=== PATIENT | female | born 1965 | race Caucasian/White ===

== ENCOUNTER 2023-02-15 09:45 | Observation (INO) ==
--- NOTE | 2023-01-27 11:19 | PAT Medication Instructions ---
Medication Instructions Date of Service January 27, 2023 Home Medications albuterol sulfate 2.5 mg/3 mL (0.083 %) solution for nebulization 2.5 mg inhalation .COMPLEX PRN Shortness Of Breath albuterol sulfate 90 mcg/actuation aerosol inhaler (ProAir HFA) 2 puffs inhalation Q4H PRN Shortness Of Breath furosemide 40 mg tablet 40 mg PO DAILY PRN Edema meloxicam 15 mg tablet 15 mg PO QAM biotin 1 mg tablet 1 mg PO QAM calcium carbonate 600 mg-vitamin D3 5 mcg (200 unit) tablet 2 tab PO BID cyanocobalamin (vitamin B-12) 1,000 mcg/mL injection solution 1,000 mcg IM MONTHLY fluticasone propionate 50 mcg/actuation nasal spray,suspension (Flonase Allergy Relief) 1 sprays intranasal DAILY PRN Allergy Symptoms loratadine 10 mg tablet (Claritin) 10 mg PO QAM eqbbabpd-izej-bxz-folic acid 18 mg-0.4 mg tablet (One Daily For Women) 1 tab PO QAM tramadol 50 mg tablet 100 mg PO Q6H PRN Pain trazodone 50 mg tablet 50 mg PO HS Continue as directed cyanocobalamin (vitamin B-12) 1,000 mcg/mL injection solution 1,000 mcg IM MONTHLY ASK your surgeon for instructions meloxicam 15 mg tablet 15 mg PO QAM STOP taking 2 weeks before surgery biotin 1 mg tablet 1 mg PO QAM DO NOT take the morning of surgery furosemide 40 mg tablet 40 mg PO DAILY PRN Edema calcium carbonate 600 mg-vitamin D3 5 mcg (200 unit) tablet 2 tab PO BID loratadine 10 mg tablet (Claritin) 10 mg PO QAM ceskihep-fard-ibo-folic acid 18 mg-0.4 mg tablet (One Daily For Women) 1 tab PO QAM Take morning of surgery With a small sip of water, OTHERWISE NOTHING TO EAT OR DRINK AFTER MIDNIGHT: albuterol sulfate 2.5 mg/3 mL (0.083 %) solution for nebulization 2.5 mg inhalation .COMPLEX PRN Shortness Of Breath (if needed) albuterol sulfate 90 mcg/actuation aerosol inhaler (ProAir HFA) 2 puffs inhal ation Q4H PRN Shortness Of Breath (use if needed; please bring with you to hospital day of surgery if possible) fluticasone propionate 50 mcg/actuation nasal spray,suspension (Flonase Allergy Relief) 1 sprays intranasal DAILY PRN Allergy Symptoms (if needed) tramadol 50 mg tablet 100 mg PO Q6H PRN Pain (if needed) Take evening before surgery albuterol sulfate 2.5 mg/3 mL (0.083 %) solution for nebulization 2.5 mg inhalation .COMPLEX PRN Shortness Of Breath (if needed) albuterol sulfate 90 mcg/actuation aerosol inhaler (ProAir HFA) 2 puffs inhalation Q4H PRN Shortness Of Breath (if needed) furosemide 40 mg tablet 40 mg PO DAILY PRN Edema (if needed) calcium carbonate 600 mg-vitamin D3 5 mcg (200 unit) tablet 2 tab PO BID fluticasone propionate 50 mcg/actuation nasal spray,suspension (Flonase Allergy Relief) 1 sprays intranasal DAILY PRN Allergy Symptoms (if needed) tramadol 50 mg tablet 100 mg PO Q6H PRN Pain (if needed) trazodone 50 mg tablet 50 mg PO HS Other Notes If you have any questions please call us at [phone] or [phone] or [phone] or [phone]
--- NOTE | 2023-02-02 15:26 | Anesthesiology Consultation ---
Date of Service February 02, 2023 Assessment & Plan (1) Encounter for pre-operative examination: - Infectious disease screening: Per assessment on 02/02/23: No known infectious disease contacts or current infectious disease symptoms. No noted Covid positive test result in past 90 days. - PCP visit (02/04/23): "Requesting preop testing. Patient is to see Cardiology next week - she can be cleared from our standpoint so long as her preop testing is within normal limits and Cardiology clears her." > Preop testing unremarkable and patient okay to proceed from cardiology perspective* - Patient scheduled to see [facility] cardiology in near future (new patient, PCP recommended visit for evaluation of previous chest pain). Cardiology visit (02/10/23): "Annabella Freeman is a 57 year old year old female Who in November 2022 developed chest pain in the middle of her chest. She described it as a squeezing sensation. There was no radiation of her discomfort, shortness of breath, or nausea. Her symptoms lasted for 4 days and was unrelenting. From what I understand she was to get a stress test but for reasons hard to explain the insurance company denied this. She had a resting echo which was essentially normal. Fortunately she is had no further chest discomfort. She is scheduled for total knee arthroplasty... Chest discomfort: Her chest discomfort was continuous for 3-4 days and unrelenting. She had a normal echo. I do not think her chest discomfort was cardiac in nature. Fortunately she is had no further symptoms.. Preoperative evaluation: She can achieve 4 metabolic equivalents of exercise. Her left ventricular systolic function is normal and she has no significant valvular abnormalities. I think she can proceed with orthopedic surgery without further cardiac evaluation." - addendum 02/10/23 Maritza Stinson PA-C: Outpatient joint assessment: Patient is currently scheduled for inpatient pathway. If re-evaluated and patient/surgeon requests outpatient pathway, patient is not acceptable candidate for outpatient joint program from anesthesia standpoint. Chart Review Chart Review: Acceptable Risk for Surgery and Patient seen in Pre Admission Testing Teaching & Discussion Pre-Anesthesia Teaching/Discussion Notes: Instructed NPO after midnight before surgery,except medications with 15 cc of water. Medication instructions provided according to the PAT guidelines. History Surgery Operation Date: 02/15/23 08:00 Proposed Procedures p Left Total Knee Arthropalsty Possible Stems and Wedges - Isra Villa, DO Height/Weight Height: 5 ft 1 in Weight: 123.8 kg Allergies Allergy/AdvReac Type Severity Reaction Status Date / Time sulfamethoxazole Allergy Severe Skin Verified 02/01/23 14:50 [From peeling Sulfamethoxazole-Trimethoprim] trimethoprim Allergy Severe Skin Verified 02/01/23 14:50 [From peeling Sulfamethoxazole-Trimethoprim] ciprofloxacin [Cipro] Allergy Intermediate Rash Verified 02/01/23 14:50 prednisone Allergy Intermediate Rash Verified 02/01/23 14:50 Penicillins AdvReac Mild "Does not Verified 02/01/23 14:50 work" per patient doxycycline Allergy Intermediate Rash Uncoded 02/01/23 14:50 montelukast AdvReac Severe Neurologic Uncoded 02/01/23 14:50 complications Medications Home Medications Medication Instructions Recorded Confirmed Last Taken albuterol sulfate 2.5 mg/3 mL 2.5 mg inhalation .COMPLEX PRN 04/16/19 01/26/23 Unknown (0.083 %) solution for nebulization Shortness Of Breath albuterol sulfate 90 mcg/actuation 2 puffs inhalation Q4H PRN 04/16/19 01/26/23 Unknown aerosol inhaler (ProAir HFA) Shortness Of Breath furosemide 40 mg tablet 40 mg PO DAILY PRN Edema 04/16/19 01/26/23 Unknown meloxicam 15 mg tablet 15 mg PO QAM 04/16/19 01/26/23 Unknown biotin 1 mg tablet 1 mg PO QAM 01/26/23 01/26/23 Unknown calcium carbonate 600 mg-vitamin 2 tab PO BID 01/26/23 01/26/23 Unknown D3 5 mcg (200 unit) tablet cyanocobalamin (vitamin B-12) 1,000 mcg IM MONTHLY 01/26/23 01/26/23 Unknown 1,000 mcg/mL injection solution fluticasone propionate 50 1 sprays intranasal DAILY PRN 01/26/23 01/26/23 Unknown mcg/actuation nasal Allergy Symptoms spray,suspension (Flonase Allergy Relief) loratadine 10 mg tablet (Claritin) 10 mg PO QAM 01/26/23 01/26/23 Unknown rjtjvoci-kttu-wyu-folic acid 18 1 tab PO QAM 01/26/23 01/26/23 Unknown mg-0.4 mg tablet (One Daily For Women) tramadol 50 mg tablet 100 mg PO Q6H PRN Pain 01/26/23 01/26/23 Unknown trazodone 50 mg tablet 50 mg PO HS 01/26/23 01/26/23 Unknown Past Medical History Medical History Anemia Asthma Atypical chest pain PCP had recommended stress test for evaluation of atypical chest pain- due to difficulty with insurance coverage of stress testing, resting Echo was done 01/2023 and patient was advised to have cardiology assessment ([facility] cardio appt scheduled 02/09) Fatty liver History of COVID-19 06/2020- mild symptoms, resolved History of Veda thyroiditis Morbid obesity with BMI of 50.0-59.9, adult Sleep apnea Hx prior to gastric bypass, no device currently (no formal retesting) Exercise / Class Metabolic Activity III < 4 Walking/Shop/Light housework Past Family History Family History Mother Family history of reaction to anesthesia vomiting Past Surgical History Surgical History History of colonoscopy History of esophagogastroduodenoscopy (EGD) History of placement of ear tubes x3 History of removal of cyst Breast (benign) History of Slade-en-Y gastric bypass 2006 History of tonsillectomy and adenoidectomy History of wisdom tooth extraction Past Anesthesia History No Hx of Anesthesia Complications Mother- PONV History of PONV No Hx of PONV and No Hx of Motion Sickness Social History Smoking Status: Never smoker Do You Dip or Chew Tobacco: No Hx Alcohol Use: Yes Alcohol type: beer alcohol intake frequency: holidays/special occasions only Hx Substance Use: No substance use type: does not use Review of Systems Patient denies chest pain, shortness of breath, fever, chills, cough, wheezing, palpitations. Physical Exam Vital Signs VITALS BP 132/83 P 68 TEMP 98.0 SP02 95%RA RESP 16 PHYSICAL Full cervical extension range of motion. Full TMJ range of motion. TMD 4 finger breaths Mallampati Score 1 Dentition: right lower molar missing cap Lungs: clear throughout to auscultation Cardiac: regular rate and rhythm, no murmurs noted Spine: normal Carotid arteries: negative bruit Extremities: no LE edema Short neck Lab Results Anesthesia Preop Results Results Anesthesia Widget: WBC 6.49 K/ul (4.8-10.8) 02/02/23 Hgb 12.9 g/dl (12.0-16.0) 02/02/23 Hct 39.8 % (37.0-47.0) 02/02/23 Plt 340 K/uL (130-400) 02/02/23 Na 141 mmol/L (136-145) 02/02/23 K 4.5 mmol/L (3.5-5.1) 02/02/23 Cl 107 mmol/L (98-107) 02/02/23 CO2 29 mmol/L (21-32) 02/02/23 BUN 18 mg/dl (6-23) 02/02/23 Creat 0.62 mg/dl (0.6-1.2) 02/02/23 Glucose Level 97 mg/dl (70-99(Fasting)) 02/02/23 PT 10.9 Seconds (9.0-12.0) 02/02/23 PTT 25.0 Seconds (21.0-31.0) 02/02/23 INR 1.0 (0.9-1.1) 02/02/23 HA1c 6.0 % (4.5-5.6) H 02/02/23 Urine Color Yellow 02/02/23 Urine Appearance Clear (Clear) 02/02/23 Urine pH 5.5 (4.5-7.5) 02/02/23 Urine Specific [place] 1.026 (1.000-1.030) 02/02/23 Urine Protein Negative (Negative) 02/02/23 Urine Glucose (UA) Negative (Negative) 02/02/23 Urine Ketones Negative (Negative) 02/02/23 Urine Blood Negative (Negative) 02/02/23 Urine Nitrite Negative (Negative) 02/02/23 Urine Bilirubin Negative (Negative) 02/02/23 Urine Urobilinogen Negative (Negative) 02/02/23 Urine Leukocyte Esterase Trace (Negative) H 02/02/23 Urine WBC (Auto) 1-5 /hpf (0-5) 02/02/23 Urine RBC (Auto) 0-4 /hpf (0-4) 02/02/23 Urine Hyaline Casts (Auto) 0 /lpf (0-5) 02/02/23 Urine Epithelial Cells (Auto) 10-20 /lpf (0-5) H 02/02/23 Urine Bacteria (Auto) Negative (Negative) 02/02/23 Blood Type O Positive 02/02/23 Antibody Screen NEGATIVE 02/02/23 Testing Electrocardiogram Date: 11/24/22 NSR at 64bpm. Cannot r/o anterior infarct, age undetermined. No significant change compared to 11/03/2020 per [facility] sewer comparison. Echo 01/17/23* Chest X-Ray Date: 02/02/23 FINDINGS: Lung volumes are normal. Lungs are clear. There is no pneumothorax or pleural effusion. Cardiac size is normal. Mediastinal contours are normal. There is no evidence for pulmonary edema. IMPRESSION: No acute cardiopulmonary findings. Echocardiogram Date: 01/17/23 EF 55 to 60%. Wall motion is normal. No regional wall motion abnormality. Mild MR/TR. Trivial pericardial effusion is identified circumferential to the heart. No evidence of hemodynamic compromise.
--- NOTE | 2023-02-03 09:02 | History & Physical Report ---
Date of Service February 03, 2023 date of surgery: 02/15/23 Procedure: Left Total Knee Arthropalsty with Possible Stems and Wedges Surgeon: Isra Villa Assessment & Plan (1) Arthritis of knee, left: Plan: Further care discussed with patient and at this point in time has failed conservative measures and would like to proceed with a left total knee replacement. Plan on discharge will be home with home health physical therapy. DVT prophylaxiswith TEDs, SCDs and will also place on aspirin 81 mg p.o. b.i.d. for a month postop. Patient will have follow up appointment in our office two weeks post op for staple/suture removal and re-evaluation. Patient otherwise has no other questions or concerns. The risks and benefits have been discussed including, but not limited to, risk of infection, nerve injury, stiffness, loss of motion, failure to improve, etc. Reasonable outcomes and options of treatment were discussed. An explanation of appropriate alternatives to the procedure that may be advantageous were discussed and their risks and benefits, as well as the risks and benefits of not proceeding with treatment. I offered to answer any additional inquiries concerning the treatment involved. All the patient's questions were answered. The patient is agreeable, understanding of the treatment plan and alternatives, and wishes to proceed with the treatment plan. History of Present Illness Chief Complaint: left knee pain Primary Care Provider: Singh Guevara MD Annabella is a pleasant 57-year-old female who presented for preop evaluation prior to upcoming left total knee arthroplasty. Shes had pain in the knees for many years now, which is gradually worsened and is now affecting her daily activities, including walking, standing and using stairs. She states that she has tried previous injections as well as oral medications, including Tylenol ibuprofen as well as physical therapy. At This point time has failed conservative measures, and which is a proceed with a left on the replacement. Allergies Allergy/AdvReac Type Severity Reaction Status Date / Time sulfamethoxazole Allergy Severe Skin Verified 02/01/23 14:50 [From peeling Sulfamethoxazole-Trimethoprim] trimethoprim Allergy Severe Skin Verified 02/01/23 14:50 [From peeling Sulfamethoxazole-Trimethoprim] ciprofloxacin [Cipro] Allergy Intermediate Rash Verified 02/01/23 14:50 prednisone Allergy Intermediate Rash Verified 02/01/23 14:50 Penicillins AdvReac Mild "Does not Verified 02/01/23 14:50 work" per patient doxycycline Allergy Intermediate Rash Uncoded 02/01/23 14:50 montelukast AdvReac Severe Neurologic Uncoded 02/01/23 14:50 complications Home Medications Medication Instructions Recorded Confirmed Type albuterol sulfate 2.5 mg/3 mL 2.5 mg inhalation .COMPLEX PRN 04/16/19 01/26/23 History (0.083 %) solution for nebulization Shortness Of Breath albuterol sulfate 90 mcg/actuation 2 puffs inhalation Q4H PRN 04/16/19 01/26/23 History aerosol inhaler (ProAir HFA) Shortness Of Breath furosemide 40 mg tablet 40 mg PO DAILY PRN Edema 04/16/19 01/26/23 History meloxicam 15 mg tablet 15 mg PO QAM 04/16/19 01/26/23 History biotin 1 mg tablet 1 mg PO QAM 01/26/23 01/26/23 History calcium carbonate 600 mg-vitamin 2 tab PO BID 01/26/23 01/26/23 History D3 5 mcg (200 unit) tablet cyanocobalamin (vitamin B-12) 1,000 mcg IM MONTHLY 01/26/23 01/26/23 History 1,000 mcg/mL injection solution fluticasone propionate 50 1 sprays intranasal DAILY PRN 01/26/23 01/26/23 History mcg/actuation nasal Allergy Symptoms spray,suspension (Flonase Allergy Relief) loratadine 10 mg tablet (Claritin) 10 mg PO QAM 01/26/23 01/26/23 History ajdgkwsp-yggx-ylk-folic acid 18 1 tab PO QAM 01/26/23 01/26/23 History mg-0.4 mg tablet (One Daily For Women) tramadol 50 mg tablet 100 mg PO Q6H PRN Pain 01/26/23 01/26/23 History trazodone 50 mg tablet 50 mg PO HS 01/26/23 01/26/23 History Past Med/Surg History Medical History Anemia Asthma Atypical chest pain PCP had recommended stress test for evaluation of atypical chest pain- due to difficulty with insurance coverage of stress testing, resting Echo was done 01/2023 and patient was advised to have cardiology assessment ([facility] cardio appt scheduled 10/4) Fatty liver History of COVID-19 06/2020- mild symptoms, resolved History of Veda thyroiditis Morbid obesity with BMI of 50.0-59.9, adult Sleep apnea Hx prior to gastric bypass, no device currently (no formal retesting) Surgical History History of colonoscopy History of esophagogastroduodenoscopy (EGD) History of placement of ear tubes x3 History of removal of cyst Breast (benign) History of Slade-en-Y gastric bypass 2006 History of tonsillectomy and adenoidectomy History of wisdom tooth extraction Family History Mother Family history of reaction to anesthesia vomiting Social History Smoking Status: Never smoker Second Hand Exposure: No; Do You Dip or Chew Tobacco: No; Hx Alcohol Use: Yes Alcohol type: beer Hx Substance Use: No Preferred Language: Czech Communication Ability: Effective 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 Beliefs That Will Affect Care: None Current Living Situation: Parent and Family Current Living Situation Comment: Lives with mom and foster daughter Feels Safe at Home: Yes Assistive Devices: Glasses and Nebulizer Review of Systems Review of Systems: All systems reviewed & are unremarkable except as noted in HPI & below Constitutional: no fever, no chills and no sweats Respiratory: no cough and no dyspnea Cardiovascular: no chest pain, no dyspnea and no orthopnea Gastrointestinal: no abdominal pain, no nausea and no vomiting Musculoskeletal: as per Subjective / HPI Physical Exam Physical Exam: HT 5ft 1in wt: 123.8kg Constitutional: WD/WN, vitals as above no acute distress Respiratory: normal respiratory effort, lungs clear to auscultation no respiratory distress, no labored breathing and does not use accessory muscles Cardiovascular: RRR, no murmur, no edema Gastrointestinal (Abdomen): normal bowel sounds, soft, nontender, no hepatosplenomegaly Musculoskeletal: Knee: + knee abnormal to inspection (left knee), + effusion (+1 effusion), + limited ROM of knee (ROM 0/3/110), + knee ROM with crepitation, + joint line tenderness (medial joint line) and + Bharathi's sign positive; no deformity, no skin erythema, no ecchymosis, no valgus laxity, no varus laxity, anterior drawer test negative, Paula's sign negative and pivot shift test negative Results & Data Results & Data Diagnostic Findings Advanced DJD of the left knee, bone on bone changes, narrowing medial compartment and PF joint with osteophyte formation and subchondral sclerosis.
[~2023-02-15 09:45] MED LIST: ACETAMINOPHEN 500 MG TAB PO SCH; BUPIVACAINE 0.5 % 5 MG/1 ML PF 10ML VIAL ONE; CeleBREX 200 MG CAP PO SCH; FAMOTIDINE 20 MG TAB PO SCH; GABAPENTIN 300 MG CAP PO SCH; LR 500ML BOLUS, THEN 15ML/HR IV SCH; LR 60ML/HR IV SCH; METOCLOPRAMIDE HCL 10 MG TABLET PO SCH; ROPIVACAINE 0.5% 5 MG/ML 30 ML VIAL ONE; ROPIVACAINE 0.5% HCL/PF 150 MG, BUPIVACAINE 0.75% MPF 20 ML, EPINEPHrine 30MG/30ML (OR ... INSTIL SCH; TRANEXAMIC ACID 1,000 MG **IV Intra-op IV SCH; TRANEXAMIC ACID 1,000 MG **IV Pre-op IV SCH
--- NOTE | 2023-02-15 10:12 | History & Physical Bridge Note ---
Date of Service February 15, 2023 History & Physical Bridge Note I have examined the patient, reviewed the History & Physical and in the interval since the performance of the History & Physical I have noted the following changes of clinical significance: no changes noted
[2023-02-15] MEDS ORDERED: ATROPINE SULFATE 0.1 MG/ML 10ML SYR IV PRN (11:25)
[2023-02-15] MEDS ORDERED: fentaNYL citrate PF 100 MCG/2 ML VIAL IV PRN (11:25)
[2023-02-15] MEDS ORDERED: ONDANSETRON INJ 2 MG/ML 2 ML VIAL IV PRN ×2 (11:25→16:52)
[2023-02-15] MEDS ORDERED: ePHEDrine sulfate 50 MG/ML AMP IV PRN (11:25)
[2023-02-15] MEDS ORDERED: ORTHO JOINT ANESTHETIC ONE (11:53)
[2023-02-15] MEDS ORDERED: fentaNYL citrate PF 100 MCG/2 ML VIAL ONE (11:54)
[2023-02-15] MEDS ORDERED: PROPOFOL IV EMULSION 10 MG/ML 20 ML VIAL IV ONE ×2 (11:54→13:51)
[2023-02-15] MEDS ORDERED: MIDAZOLAM HCL 1 MG/ML 2ML VIAL ONE (11:54)
[2023-02-15] MEDS ORDERED: KETAMINE 50 MG/5 ML SYRINGE ONE (11:54)
[2023-02-15] MEDS ORDERED: LIDOCAINE 2% 2 ML VIAL/AMP(20MG/ML) INFIL ONE (11:54)
[2023-02-15] MEDS ORDERED: PHENYLEPHRINE 100MCG/ML 5ML SYR ONE (13:39)
--- NOTE | 2023-02-15 13:56 | Operative Report ---
Post Operative Report Pre & Post Diagnosis Operation Date: 02/15/23 11:10 Pre-Op Diagnosis: Osteoarthritis Knee Left Post-Op Diagnosis: Osteoarthritis Knee LeftMorbid obesity 51.7 BMI 124 kg I identified the patient and participated in the time-out.: Yes Procedure Operation Date: 02/15/23 11:10 Actual Procedures p Left Total Knee Arthropalsty Utilizing patient-matched total knee arthroplasty size journey 2 Ferreira & Nephew journey 2 size femur 5 tibia 3 poly 10 patella 29 ovalLeft) - Isra Villa DO Surgeon Isra Villa DO Preschool Teacher Alex DOUGLAS Estimated Blood Loss 10 Findings Consistent with Post-Op Diagnosis Patient presents with severe end-stage tricompartmental DJD left knee eburnated [id number] marginal osteophytes varus alignment subchondral sclerosis large effusion Specimens Bone and cartilage Drains Medium bore Hemovac Anesthesia Type MAC Spinal Regional Complications none Disposition Accompanied Patient To Recovery: No Indications Patient presents with severe end-stage DJD left knee failed attempted conservative management occluding physical therapy anti-inflammatories relative rest activity modification patient presents with eburnated [id number] failing to corticosteroid injections as well as viscosupplementation Description of Procedure After proper prepping and draping of the left lower extremity anterior midline incision was made over the region of the extensor extensor mechanism after meticulous hemostasis was obtained and maintained in subcutaneous tissues a medial parapatellar incision was made The patella was subluxed lateralward the medial lateral gutter were cleaned from any hypertrophic synovitis and scar tissue of the distal femoral block was placed and the distal femoral osteotomy cut was made subsequently the chamfers anterior and posterior osteotomy cuts were made utilizing the 4-in-1 block the tibia was subsequently subluxed anteriorward medial and ateral meniscal remnants were excised in their entirety remnants of the anterior and posterior cruciate ligaments were excised in their entirety excellent exposure of the proximal tibia was obtained the tibial osteotomy guide was placed on the proximal tibial osteotomy cut was made once again the knee was irrigated with copious amounts of sterile saline solution the patella was subsequently everted lateralward thickened scar tissue around the patella was removed the patella was subsequently cut utilizing a freehand technique and was drilled prepared for final preparation and placement of patella socially flexion-extension gaps were checked and the equal and symmetric trials were placed to the appropriate femoral and tibial trials with poly-spacer being placed for equal flexion and extension gaps and full range of motion including extension to 0 and flexion to 140 the trial components after having been taken to recovery range of motion was subsequently removed meticulous hemostasis was obtained and maintained subsequently a knee block injection of joint cocktail including ropivacaine 0.5% 150 mg. Bupivacaine 0.5% epinephrine 1-200,030 mL's toradol 30 mg dexamethasone 4 mg ketamine 10 mg clonidine 100 micrograms normal saline solution 30 mg was infiltrated into the soft tissues of the posterior knee medial lateral gutters and periosteal synovium special attention was paid to protect neurovascular structures at all times subsequently trial components having been removed the knee was irrigated with sterile saline solution. debris was removed the proximal tibia was subsequently prepared and was made ready for the placement of the tibial component tibial component was also cemented and tamped into position the femoral component was subsequently placed and cemented in the position the patellar component was subsequently cemented in position because hemostasis once again obtained and maintained wound having been thoroughly irrigated with debridement and debridement lavage was performed as well as a medial parapatellar incision closed with #1 Vicryl in interrupted fashion subcutaneous was closed with #2 Vicryl skin was closed with skin clips. PA-C was necessary for prepping and drapping as well as wound closure of deep fascia Sub cutaneous tissue and skin and was necessary for the case. A sterile compressive dressing was placed patient was taken to recovery in stable condition of report dictated by Allen I attest to the content of the Intraoperative Record and any orders documented therein. Any exceptions are noted below.Due to the complex nature of the procedure, the entire surgery was performed with the operational assistance ofAlex Wangangeline Antonio patient is 124 kg with a BMI of51.7 The patient's habitus did contribute to significant technical difficulty requiring extra time. Additional help was necessary in order to position the patient safely. The use of specialized (longer, deeper) retractors and/or instruments were needed. Due to this, the procedure took 20 minutes longer than the standard total knee arthroplasty.". The trust administrative assistant, under direct supervision, was involved in the actual performance of all aspects of the surgical procedure including hemostasis, tissue retraction and incision, instrument management, patient positioning, and wound closure. I attest to the content of the Intraoperative Record and any orders documented therein. Any exceptions are noted below.
--- NOTE | 2023-02-15 15:57 | XRay Report ---
LEFT KNEE 2 VIEWS History: Left total knee arthroplasty. Degenerative arthritis. Postop. FINDINGS: The patient is status post a left total knee arthroplasty. The hardware is intact. No fract ure or dislocation. Skin karey and surgical drains are in place. IMPRESSION: Left total knee arthroplasty. No evidence for hardware complication. ACT 112: Negative or not required by law. Electronically signed by: Rayshawn Rodriguez M.D. 02/15/2023 3:55 PM
[2023-02-15] MEDS ORDERED: SODIUM CHLORIDE 0.9% 1,000 ML IV SCH (16:52)
[2023-02-15] MEDS ORDERED: MAGNESIUM HYDROXIDE SUSP 30 ML UDC PO PRN (16:52)
[2023-02-15] MEDS ORDERED: bisacodyL 10 MG SUPP PR PRN (16:52)
[2023-02-15] MEDS ORDERED: NALOXONE HCL 0.4 MG/1 ML VIAL/CARP IV PRN (16:52)
[2023-02-15] MEDS ORDERED: diphenhydrAMINE 50 MG/ML VIAL IV PRN (16:52)
[2023-02-15] MEDS ORDERED: HYDROmorphone INJ 0.5 MG/0.5 ML SYR IV PRN (16:52)
[2023-02-15] MEDS ORDERED: FLUTICASONE PROPIONATE NA SPR 16 GM BTL PRN (16:52)
[2023-02-15] MEDS ORDERED: FUROSEMIDE 40 MG TAB PO PRN (16:52)
[2023-02-15] MEDS ORDERED: ALBUTEROL HFA 8 GM INHALER INH PRN (16:52)
--- NOTE | 2023-02-15 17:13 | Anesthesiology Progress Note ---
Date of Service February 15, 2023 Anesthesia Post Procedure Vital Signs Vital Signs: Temp Pulse Pulse Resp BP Pulse Ox O2 Del Method 02/15/23 16:46 36.4 C L 63 12 128/75 98 Room Air 02/15/23 16:20 36.5 C 62 12 146/72 H 95 Room Air 02/15/23 16:01 36.7 C 56 L 12 130/75 96 Room Air 02/15/23 15:50 36.7 C 53 L 12 125/76 97 Room Air 02/15/23 15:40 36.7 C 60 14 131/76 99 Room Air 02/15/23 15:30 36.7 C 56 L 17 126/70 96 Room Air 02/15/23 15:20 36.7 C 90 16 145/79 H 100 Oxymask 02/15/23 15:10 36.7 C 59 L 11 L 127/68 98 Oxymask 02/15/23 15:00 58 L 9 L 100/69 95 Oxymask 02/15/23 14:50 64 11 L 120/65 96 Oxymask 02/15/23 14:40 37.1 C 69 15 122/68 96 Oxymask 02/15/23 10: 36.4 C L 68 18 175/96 H 100 Room Air O2 Flow Rate 02/15/23 16:46 02/15/23 16:20 02/15/23 16:01 02/15/23 15:50 02/15/23 15:40 02/15/23 15:30 02/15/23 15:20 3 02/15/23 15:10 5 02/15/23 15:00 5 02/15/23 14:50 5 02/15/23 14:40 5 02/15/23 10: Pain Intensity Left Knee: Pain Intensity: 0 Transfer of Care Handoff Completed per policy Notes Mental Status: alert / awake / arousable and participated in evaluation Patient Amnestic to Procedure: Yes Nausea / Vomiting: adequately controlled Pain: adequately controlled Airway Patency, RR, SpO2: stable & adequate BP & HR: stable & adequate Hydration State: stable & adequate Anesthetic Complications: no major complications apparent and Pt Satisfied with anesthetic care
[2023-02-15] MEDS: KETOROLAC TROMETHAMINE 15 MG/ML VIAL IV SCH ×2 (17:17→22:10)
[2023-02-15] MEDS: ceFAZolin 2000MG 2,000 MG/15 ML SYR IV SCH (20:54)
[2023-02-15] MEDS: DOCUSATE SODIUM 100 MG CAP PO SCH (20:55)
[2023-02-15] MEDS: ASPIRIN 81 MG ECTAB PO SCH (20:55)
[2023-02-15] MEDS: CALCIUM 600MG + VIT D 400 IU TAB PO SCH (20:56)
[2023-02-15] MEDS ORDERED: traZODone HCL 50 MG TAB PO SCH (21:00)
[2023-02-15] MEDS ORDERED: SENNA 8.6 MG TAB PO SCH (21:00)
[2023-02-15] MEDS: ACETAMINOPHEN 500 MG TAB PO SCH (22:10)
[2023-02-16] MEDS: oxyCODONE HCL IR 5 MG TAB (IMMEDIATE RELEASE) PO PRN ×3 (03:55→12:34)
[2023-02-16] MEDS: ACETAMINOPHEN 500 MG TAB PO SCH ×2 (05:13→14:38)
[2023-02-16] MEDS: ceFAZolin 2000MG 2,000 MG/15 ML SYR IV SCH (05:13)
[2023-02-16] MEDS: KETOROLAC TROMETHAMINE 15 MG/ML VIAL IV SCH ×3 (05:13→12:11)
--- NOTE | 2023-02-16 06:52 | Orthopedic Progress Note ---
Date of Service February 16, 2023 Assessment & Plan (1) Arthritis of knee, left: Plan: Postop day 1 status post left total knee arthroplasty. PT/OT protocols. Weightbearing as tolerated. DVT prophylaxis-aspirin p.o. twice daily, SCDs, DAMI brush. Pain management as written. Labs pending. DC planning-patient is planning on home health services upon discharge. We will see how she progresses with her PT. We will need to review her labs when available. Possible discharge to home today if she is progressing well. Admission and Anticipated Discharge Date Admission Date: February 15, 2023 Subjective Postop day 1 Patient lying in bed awake and alert. Difficulty sleeping last night but otherwise she has no other complaints. Pain is controlled. Denies shortness of breath, chest pain, lightheadedness. Physical Exam Physical Exam: Dressings are clean, dry, and intact. Calves are soft nontender. Neurovascular is intact. Toes are mobile. She has good dorsiflexion and plantarflexion of her left foot. Hemovac drainage was 125 mL Results & Data Vital Signs (Past 12 Hours) Vital Signs Temp Pulse Resp BP Pulse Ox O2 Del Method 02/16/23 02:00 36.6 C 62 16 132/72 96 Room Air 02/15/23 22:58 36.8 C 62 16 142/72 H 96 Room Air 02/15/23 19:22 36.8 C 56 L 16 137/68 96 Room Air
[2023-02-16 07:38] LABS: Hematocrit (blood only) 36.7 % (37.0-47.0); Hemoglobin 11.9 g/dl (12.0-16.0); Mean Corpuscular Hemoglobin 27.6 pg (25.0-34.0); Mean Corpuscular Hgb Conc 32.4 g/dL (32.0-36.0); Mean Corpuscular Volume 85.2 fL (80.0-100.0); Mean Platelet Volume 11.3 fL (9.4-12.4); Platelet Count 257 K/uL (130-400); RDW Coefficient of Variation 13.3 % (11.5-14.5); RDW Standard Deviation 41.7 fL (36.4-46.3); Red Blood Count 4.31 M/uL (4.20-5.40); White Blood Count 13.52 K/ul (4.8-10.8)
[2023-02-16 07:58] LABS: BUN Creatinine Ratio 24.1 (10-20); Calcium 8.5 mg/dl (8.6-10.3); Creatinine Clr Calc Pharmacy 132.2 ml/min; Est GFR (African American) 118.6 ml/min; Est GFR (Non-African American) 102.3 ml/min
[2023-02-16] MEDS: DOCUSATE SODIUM 100 MG CAP PO SCH (08:49)
[2023-02-16] MEDS: CALCIUM 600MG + VIT D 400 IU TAB PO SCH (08:49)
[2023-02-16] MEDS: ASPIRIN 81 MG ECTAB PO SCH (08:49)
[2023-02-16] MEDS ORDERED: MULTIVITAMIN TAB PO SCH (09:00)
[2023-02-16] MEDS ORDERED: CYANOCOBALAMIN 1000 MCG/ML VIAL IM SCH (09:00)
[2023-02-16] MEDS ORDERED: NON-FORMULARY MEDICATION (Biotin 1 mg Tablet) PO SCH (09:00)
[2023-02-16] MEDS ORDERED: LORATADINE 10 MG TAB PO SCH (09:00)
--- NOTE | 2023-02-21 18:43 | Discharge Summary ---
Date of Service February 21, 2023 Admission HPI Per Admitting Provider Julien is a pleasant 57-year-old female who presented for preop evaluation prior to upcoming left total knee arthroplasty. Shes had pain in the knees for many years now, which is gradually worsened and is now affecting her daily activities, including walking, standing and using stairs. She states that she has tried previous injections as well as oral medications, including Tylenol ibuprofen as well as physical therapy. At This point time has failed conservative measures, and which is a proceed with a left on the replacement. Admission Exam Per Admitting Provider Physical Exam: HT 5ft 1in wt: 123.8kg Constitutional: WD/WN, vitals as above no acute distress Respiratory: normal respiratory effort, lungs clear to auscultation no respiratory distress, no labored breathing and does not use accessory muscles Cardiovascular: RRR, no murmur, no edema Gastrointestinal (Abdomen): normal bowel sounds, soft, nontender, no hepatosplenomegaly Musculoskeletal: Knee: + knee abnormal to inspection (left knee), + effusion (+1 effusion), + limited ROM of knee (ROM 0/3/110), + knee ROM with crepitation, + joint line tenderness (medial joint line) and + Bharathi's sign positive; no deformity, no skin erythema, no ecchymosis, no valgus laxity, no varus laxity, anterior drawer test negative, Paula's sign negative and pivot shift test negative Principal Diagnosis Left Knee Osteoarthritis Discharge Data Allergies Allergy/AdvReac Type Severity Reaction Status Date / Time sulfamethoxazole Allergy Severe Skin Verified 02/15/23 10:17 [From peeling Sulfamethoxazole-Trimethoprim] trimethoprim Allergy Severe Skin Verified 02/15/23 10:17 [From peeling Sulfamethoxazole-Trimethoprim] ciprofloxacin [Cipro] Allergy Intermediate Rash Verified 02/15/23 10:17 prednisone Allergy Intermediate Rash Verified 02/15/23 10:17 Penicillins AdvReac Mild "Does not Verified 02/15/23 10:17 work" per patient doxycycline Allergy Intermediate Rash Uncoded 02/15/23 10:17 montelukast AdvReac Severe Neurologic Uncoded 02/15/23 10:17 complications Procedures Performed Operation Date: 02/15/23 11:10 Actual Procedures p Left Total Knee Arthropalsty(Left) - Isra J Villa, DO Ordered Studies 02/15/23 05:00 US - OR guided needle placemen Routine Hospital Course (1) Arthritis of knee, left: Patient:JULIEN JOYNER Admit Date:02/15/23 MR#:[id number] Att Phy:Isra Villa D.O. Acct ID:[id number] Charlee Phy:Adrian Valeria Sims, Date:1965 Fam Phy: Age:57 Location:3E Sex:F Room/Bed:E322-1 cc: ~ *NOTICE TO RECEIVING DEMOCRAT/AGENCY This information is strictly Confidential and protected under [place] law. [place] law prohibits you from making any further disclosure of this information unless further disclosure is expressly permitted by the written consent of the person to whom it pertains or is authorized by law. A general authorization for the release of medical or other information is not sufficient for this purpose. Hospital accepts no responsibility if the information is made available to any other person, INCLUDING THE PATIENT. Date of Service February 16, 2023 Assessment & Plan (1) Arthritis of knee, left: Plan: Postop day 1 status post left total knee arthroplasty. PT/OT protocols. Weightbearing as tolerated. DVT prophylaxis-aspirin p.o. twice daily, DAMI Sood. Pain management as written. Labs pending. DC planning-patient is planning on home health services upon discharge. We will see how she progresses with her PT. We will need to review her labs when available. Possible discharge to home today if she is progressing well. Admission and Anticipated Discharge Date Admission Date: February 15, 2023 Subjective Postop day 1 Patient lying in bed awake and alert. Difficulty sleeping last night but otherwise she has no other complaints. Pain is controlled. Denies shortness of breath, chest pain, lightheadedness. Physical Exam Physical Exam: Dressings are clean, dry, and intact. Calves are soft nontender. Neurovascular is intact. Toes are mobile. She has good dorsiflexion and plantarflexion of her left foot. Hemovac drainage was 125 mL Results & Data Vital Signs (Past 12 Hours) Vital Signs Temp Pulse Resp BP Pulse Ox O2 Del Method 02/16/23 02:00 36.6 C 62 16 132/72 96 Room Air 02/15/23 22:58 36.8 C 62 16 142/72 H 96 Room Air 02/15/23 19:22 36.8 C 56 L 16 137/68 96 Room Air Signed By: <Electronically signed by Deandre Palacios MD> 02/16/23 0705 <Electronically signed by Alex Li PA-C> 02/16/23 0653 Created:02/16/23 0650 Total Time Total Time Spent Total Time Spent (In Minutes): 5 Discharge Plan Discharge Items Patient Disposition: Home - Home Health Services Reason For Visit: LEFT TKA Discharge Diagnosis: Left knee osteoarthritis Activity: Per Instructions section Weightbearing: Full weightbearing Non-emergency contact: Surgeon Call non-emergency contact if: you have any medication questions, your pain is not controlled, your temperature is above 101.5, your wound has increased redness and your wound has increased drainage Follow-up/Referrals: Singh Guevara MD [Outside Practitioners] - Isra Villa DO [Surgeon] - ( follow-up with Dr. Villa in 2 weeks from the day of surgery for your first postoperative visit.) Diet: Regular Addtl Attending Provider Instructions: ACTIVITY RECOMMENDATIONS: SELF CARE INSTRUCTIONS AFTER TOTAL KNEE REPLACEMENT A. You may need to continue a physical therapy program after discharge from the hospital. There are several options available to you. Your doctor will assist you in selecting the best one for you. 1. An out-patient facility 2 to 3 times a week for therapy or home therapy. 2. Continue working on all exercises taught to you in the hospital. Your goals should be to increase bending of your knee to 90 degrees and beyond and to fully straighten your knee. B. You may progress at your own pace from walking with a walker or crutches to a cane; then to no assistive devices. C. Make walking a part of your daily routine. Be up as much as comfortable with rest periods throughout the day. Rest with leg elevation is very important. Use the ice wrap frequently for the first 3-4 weeks. D. There are no restrictions on activities. You may ride in a car, shop, participate in fork lift technician and all social activities. E. Wear the long elastic stockings (DAMI hose) 20 hours a day for 2 weeks after surgery. They can be removed several times a day for laundering and for a bath. F. You may shower, no tub baths until cleared by your doctor. SPECIAL CARE INSTRUCTIONS: VERY IMPORTANT TO READ AND REVIEW A. There are a few signs you need to watch for after you are home. Call [facility] if you notice any of the followin. Increased severe knee pain. Some pain is expected especially when you exercise. 2. Increased swelling in your leg or knee; pain or swelling of the calf muscle in either lower leg. 3. Any fluid drainage from the incision. 4. Shortness of breath or chest pain. B. Please call [facility] at if you have any concerns or questions about your operation or recovery. The doctor or his nurse will return your call promptly. C. You must take antibiotics before dental work, bladder, bowel or other surgery. Your doctor will provide you with a permanent care to carry describing this precaution. IMPORTANT: * REMEMBER TO TAKE ASPIRIN, 81 MG, TWICE DAILY FOR 4 WEEKS UNLESS OTHERWISE DIRECTED. THIS IS YOUR BLOOD THINNER. * CALL IF INCREASED PAIN, REDNESS, DRAINAGE OR FEVER GREATER THAT 101. * WEAR DAMI HOSE 20 HOURS PER DAY FOR 2 WEEKS. * Prevena- This is a large suction dressing covering your incision. This will help pull any excess drainage from the wound and allow your incision to heal properly. You may shower with this if you can keep the unit outside of the shower. If any bleeding or leakage is noted please call your doctor's office. This will remain on your incision for 7 days and then should be removed. This can be done yourself or by the home nursing staff if applicable. The entire unit is disposable once removed. Once removed, keep incision clean and dry. If redness or drainage is noted, please call your surgeon. . FOLLOW UP VISIT: If appointment is not already scheduled: Please call [facility] to make a follow-up appointment for 2 weeks after your surgery at . Stand-Alone Forms: [facility], [facility] - Opioid Pain Management, Smoking Cessation Medications and DC Order Prescriptions: New polyethylene glycol 3350 [Miralax] 17 gram powder in packet 17 g PO DAILY PRN (Reason: constipation) Qty: 5 0RF acetaminophen 500 mg capsule 1,000 mg PO Q8H 14 Days Qty: 84 0RF oxycodone 5 mg tablet 5 mg PO Q4H MDD 6 PRN (Reason: pain) Qty: 30 0RF aspirin [Ecotrin Low Strength] 81 mg tablet,delayed release (DR/EC) 81 mg PO BID 30 Days Qty: 60 0RF Continued albuterol sulfate 2.5 mg /3 mL (0.083 %) solution for nebulization 2.5 mg INH .COMPLEX PRN (Reason: Shortness Of Breath) Rx Instructions: 2.5 mg inhalation Every 4 to 6 hours PRN; furosemide 40 mg tablet 40 mg PO DAILY PRN (Reason: Edema) meloxicam 15 mg tablet 15 mg PO QAM albuterol sulfate [ProAir HFA] 90 mcg/actuation HFA aerosol inhaler 2 puffs INH Q4H PRN (Reason: Shortness Of Breath) trazodone 50 mg Tablet 50 mg PO HS calcium carbonate-vitamin D3 600 mg-5 mcg (200 unit) Tablet 2 tab PO BID cyanocobalamin (vitamin B-12) 1,000 mcg/mL Solution 1,000 mcg IM MONTHLY loratadine [Claritin] 10 mg Tablet 10 mg PO QAM biotin 1 mg Tablet 1 mg PO QAM One Daily For Women 18-0.4 mg Tablet 1 tab PO QAM fluticasone propionate [Flonase Allergy Relief] 50 mcg/actuation spray,suspension 1 sprays INTNAS DAILY PRN (Reason: Allergy Symptoms) Rx Instructions: administer into each nostril Discontinued tramadol 50 mg Tablet 100 mg PO Q6H PRN (Reason: Pain) Addimes/Other Patient Handouts: DVT Post Op Prevention, Knee Surg Exercise After, Total Knee Replacement, Tips After Knee Surgery, Knee Replace Home Recovery Admission Data Admit Date/Time: 02/15/23 14:51 Attending Provider: Isra Villa Admit Provider: Isra Villa Primary Care Provider: Valeria Campbell Other Providers: [facility],Home Healthcare Other Interventions: Discharge Summary Assessment (RN) Last Done: 02/16/23 14:45
== END 2023-02-16 16:19 | disposition home health service (06) ==
LOC: ASU 09:45 → 3E 09:45